=== PATIENT | female | born 1965 | race Caucasian/White ===

== ENCOUNTER 2020-05-01 08:03 | Outpatient (CLI) | payer OTHER, SELFPAY ==
--- NOTE | ~2020-05-01 | MM_ITS ---
EXAMINATION: MM screening [facility] w odilia HISTORY: Screening TECHNIQUE: Craniocaudal and mediolateral oblique 3-D tomosynthesis images were obtained and synthetic 2-D images were generated. CAD analysis was submitted and interpreted. COMPARISON: Comparison to multiple prior studies sequentially, with oldest reviewed study dated 04/09. BREAST PARENCHYMAL COMPOSITION: There are scattered areas of fibroglandular density. FINDINGS: There are focal asymmetries bilaterally in the left breast on cc views which were not defin itely seen on prior study. The right breast is stable without evidence for malignancy. IMPRESSION: 1. Focal left breast asymmetries laterally on CC view. 2. Additional mammographic views and possible breast ultrasound are recommended. BI-RADS Category 0: Incomplete: Needs additional imaging evaluation. Reviewed, dictated and finalized at location A. IMPRESSION: 1. Focal left breast asymmetries laterally on CC view. 2. Additional mammographic views and possible breast ultrasound are recommended . BI-RADS Category 0: Incomplete: Needs additional imaging evaluation.
== END 2020-05-01 08:04 | disposition home or self-care (01) ==
PROVIDERS: PCP Family Medicine; Visit Provider Obstetrics & Gynecology
DX: Z12.31 Encounter for screening mammogram for malignant neoplasm of breast (principal); R92.8 Other abnormal and inconclusive findings on diagnostic imaging of breast
CPT/HCPCS: 77063; 77067

== ENCOUNTER 2020-05-31 11:25 | Outpatient (CLI) | payer OTHER, SELFPAY ==
--- NOTE | ~2020-05-31 | MMUS_ITS ---
EXAMINATION: MM diagnostic mammo unilat LT, US breast LT limited HISTORY: New follow-up left breast asymmetry TECHNIQUE: Additional 3-D tomosynthesis images of the left breast were performed and synthetic 2-D im ages were generated. CAD analysis was submitted and interpreted. High resolution left breast ultrasou nd was performed. COMPARISON: 05/01/2020 BREAST PARENCHYMAL COMPOSITION: Breast composed of scattered areas of fibroglandular density. FINDINGS: MAMMOGRAPHIC FINDINGS: There are no suspicious masses, calcifications or architectural distortion in the left breast to sugg est malignancy. ULTRASOUND: Limited left breast ultrasound: Normal heterogeneous echotexture without focal solid or cystic mass. IMPRESSION: 1. No mammographic or sonographic evidence for malignancy in the left breast. 2. Routine yearly screening mammogram and regular clinical breast examination are recommended. BI-RADS Category 1: Negative Reviewed, dictated and finalized at location A. IMPRESSION: 1. No mammographic or sonographic evidence for malignancy in the left breast. 2. Routine yearly screening mammogram and regular clinical breast examination a re recommended. BI-RADS Category 1: Negative
== END 2020-05-31 11:26 | disposition home or self-care (01) ==
LOC: ANHIMG 11:28
PROVIDERS: PCP Family Medicine; Visit Provider Obstetrics & Gynecology
DX: R92.8 Other abnormal and inconclusive findings on diagnostic imaging of breast (principal)
CPT/HCPCS: 76642; 77065

== ENCOUNTER → 2021-01-04 08:02 | Outpatient (CLI) | payer OTHER, SELFPAY ==
--- NOTE | ~2021-01-04 | XR_ITS ---
XR shoulder RT min 2V DATE: 01/04/2021 08:23 INDICATION: Right shoulder pain TECHNIQUE: 4 views COMPARISON: None FINDINGS: There is diffuse osteopenia. Normal alignment at the acromioclavicular and glenohumeral joints. There is severe osteoarthritic change at the right glenohumeral joint with prominent humeral head spu rring. There is some irregularity and mild depression of the articular surface of the right humeral h ead. No fracture or dislocation or abnormal soft tissue calcification is evident. IMPRESSION: Severe osteoarthritis of the right glenohumeral joint Osteopenia Reviewed, dictated and finalized at location A.
== END ==
PROVIDERS: Visit Provider Physician Assistant
DX: M19.011 Primary osteoarthritis, right shoulder (principal); M85.811 Other specified disorders of bone density and structure, right shoulder
CPT/HCPCS: 73030

== ENCOUNTER 2021-05-15 08:41 | Outpatient (CLI) | payer OTHER, SELFPAY ==
--- NOTE | ~2021-05-15 | MM_ITS ---
EXAMINATION: MM screening [facility] BI w odilia HISTORY: Screening mammogram TECHNIQUE: Craniocaudal and mediolateral oblique 3-D tomosynthesis images were obtained and synthetic 2-D images were generated. CAD analysis was submitted and interpreted. COMPARISON: 05/31/2020, 05/01/2020, 04/28/2019, 04/25/2018 BREAST PARENCHYMAL COMPOSITION: There are scattered areas of fibroglandular density. FINDINGS: There is no evidence of suspicious mass, calcification, or architectural distortion to sugg est malignancy in either breast. There has been no suspicious interval change. IMPRESSION: 1. No mammographic evidence of malignancy. 2. Recommend routine screening mammography in one year. BI-RADS Category 1: Negative Reviewed, dictated and finalized at location A.
== END 2021-05-15 08:42 | disposition home or self-care (01) ==
LOC: ANHIMG 08:44
PROVIDERS: PCP Family Medicine; Visit Provider Obstetrics & Gynecology
DX: Z12.31 Encounter for screening mammogram for malignant neoplasm of breast (principal)
CPT/HCPCS: 77063; 77067

== ENCOUNTER 2022-08-07 14:42 | Outpatient (CLI) | payer OTHER, SELFPAY ==
--- NOTE | ~2022-08-07 | MM_ITS ---
EXAMINATION: MM screening [facility] BI w odilia HISTORY: Screening TECHNIQUE: Craniocaudal and mediolateral oblique 3-D tomosynthesis images were obtained and synthetic 2-D images were generated. CAD analysis was submitted and interpreted. COMPARISON: Comparison to multiple prior studies sequentially, with oldest reviewed study dated 11/2016. BREAST PARENCHYMAL COMPOSITION: There are scattered areas of fibroglandular density. FINDINGS: There is no evidence of suspicious mass, calcification, or architectural distortion to sugg est malignancy in either breast. There has been no suspicious interval change. IMPRESSION: 1. No mammographic evidence of malignancy. 2. Recommend routine screening mammography in one year. BI-RADS Category 1: Negative Reviewed, dictated and finalized at location A. 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
== END 2022-08-07 14:43 | disposition home or self-care (01) ==
LOC: ANHIMG 14:44
PROVIDERS: PCP Family Medicine; Visit Provider Obstetrics & Gynecology
DX: Z12.31 Encounter for screening mammogram for malignant neoplasm of breast (principal)
CPT/HCPCS: 77063; 77067

== ENCOUNTER 2023-09-30 08:16 | Outpatient (CLI) | payer OTHER, SELFPAY ==
--- NOTE | ~2023-09-30 | MM_ITS ---
EXAMINATION: MM screening [facility] BI w odilia HISTORY: Screening mammogram TECHNIQUE: Craniocaudal and mediolateral oblique 3-D tomosynthesis images were obtained and synthetic 2-D images were generated. CAD analysis was submitted and interpreted. COMPARISON: 08/07/2022, 05/15/2021, 05/31/2020, 05/01/2020 BREAST PARENCHYMAL COMPOSITION: There are scattered areas of fibroglandular density. FINDINGS: No suspicious mass, calcification, or architectural distortion are identified in either nina ast to suggest malignancy. There has been no suspicious interval change. IMPRESSION: 1. No mammographic evidence of malignancy. 2. Recommend routine screening mammography in one year. BI-RADS Category 1: Negative Reviewed, dictated and finalized at location A. 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
== END 2023-09-30 08:17 | disposition home or self-care (01) ==
PROVIDERS: PCP Family Medicine; Visit Provider Obstetrics & Gynecology
DX: Z12.31 Encounter for screening mammogram for malignant neoplasm of breast (principal)
CPT/HCPCS: 77063; 77067

== ENCOUNTER 2023-11-04 08:50 | Outpatient (CLI) | payer OTHER, SELFPAY ==
--- NOTE | 2023-11-04 08:52 | ECHO_ITS ---
Patient Info Name: Shania Hand Age: 58 years : 1965 Gender: Female Ht: 61 in Wt: 144 lbs BSA: 1.70 m2 HR: 71 bpm BP: 122 / 76 mmHg Technical Quality: Good Exam Date: 11/04/2023 9:02 AM Exam Location: Echo Lab Patient Status: Outpatient Admit Date: 11/04/2023 Staff Ordering Physician: Elif Grimaldo MD Bunch Breaker: Attending Provider: Elif Grimaldo MD Referring Physician: Dillan CASON; Exam Type: CA echo doppler color flow Study Info Indications R01.1 - Cardiac murmur, unspecified Complete two-dimensional, color flow and Doppler transthoracic echocardiogram is performed. Summary 1. Complete two-dimensional, color flow and Doppler transthoracic echocardiogram is performed. 2. Left ventricular chamber dimension is normal. 3. Left ventricular systolic function is normal, estimated at 60-65%. 4. The left ventricular diastolic function is grade I diastolic dysfunction. 5. E/e' 9 is minimally elevated. 6. Left atrial chamber dimension is mildly enlarged. 7. There is trace aortic valve regurgitation. 8. There is trace mitral valve regurgitation. 9. There is trace tricuspid valve regurgitation. 10. No pulmonary hypertension, estimated pulmonary arterial systolic pressure is 28 mmHg. Left Ventricle E/e' 9 is minimally elevated. Left ventricular chamber dimension is normal. Left ventricular systolic function is normal, estimated at 60-65%. The left ventricular diastolic function is grade I diastolic dysfunction. Right Ventricle Right ventricular systolic function is normal and with normal TAPSE 2.5 cm. Right ventricular chamber dimension is normal. Left Atria Left atrial chamber dimension is mildly enlarged. Right Atria Right atrial chamber dimension is normal. Aortic Valve The aortic valve is trileaflet. There is no aortic valve stenosis. There is trace aortic valve regurgitation. Pulmonic Valve There is no pulmonic regurgitation. Mitral Valve There is no mitral valve stenosis. There is trace mitral valve regurgitation. Tricuspid Valve There is trace tricuspid valve regurgitation. No pulmonary hypertension, estimated pulmonary arterial systolic pressure is 28 mmHg. Pericardium/Pleural There is no pericardial effusion. Inferior Vena Cava Normal inferior vena cava with >50% collapse upon inspiration consistent with normal right atrial pressure, 5 mmHg. Aorta The aortic root size at the sinus of Valsalva is normal. Left Ventricular Outflow Tract Name Value Normal LVOT 2D LVOT Diameter 2.0 cm LVOT Doppler LVOT Peak Gradient 5 mmHg LVOT Mean Gradient 3 mmHg LVOT VTI 28 cm LVOT VTI/AV VTI Ratio 0.7 LVOT Stroke Volume 86 ml LVOT CO 4.9 l/min LVOT CI 2.9 l/min/m2 Pulmonic Valve Name Value Normal PV Doppler
== END 2023-11-04 08:51 | disposition home or self-care (01) ==
PROVIDERS: PCP Family Medicine; Visit Provider Family Medicine
DX: R01.1 Cardiac murmur, unspecified (principal)
CPT/HCPCS: 93306

== ENCOUNTER 2024-07-10 13:24 | Outpatient (CLI) | payer OTHER, SELFPAY ==
--- NOTE | ~2024-07-10 | MR_ITS ---
MRI of the right shoulder Technique: Axial proton-density fat-sat images, coronal proton density fat-sat and T2 fat-sat images, and sagittal T1-weighted and T2 fat-sat images were acquired. Clinical History: Osteoarthritis Findings: There is ddzu-fs-edswqsfi AC joint degenerative change. No subacromial spur. Coracoclavicul ar, coracoacromial, and coracohumeral ligaments appear intact. There is moderate supraspinatus and infraspinatus tendinosis. No partial or full-thickness tear seen. Subscapularis tendon is intact. Tendon of long head of the biceps is intact. There is probable extensive degenerative attenuation of the labrum without definite discrete, detache d labral tear. There is severe glenohumeral joint osteoarthritis. There is diffuse high-grade chondromalacia with mo derate to large inferomedial humeral head osteophyte. There is mild remodeling of the shape of the me dial aspect of the humeral head. There is subchondral cystic change in the glenoid posteriorly. Inferior glenohumeral ligament is intact. There is small to moderate glenohumeral joint effusion. The re is no significant fluid distention of the subacromial/subdeltoid bursa. No muscle atrophy or edema . Impression: Severe glenohumeral joint osteoarthritis, as detailed above. Rotator cuff tendinosis, as above, without partial or full-thickness tear. Extensive degenerative attenuation of the labrum without definite, detached labral tear. Reviewed, dictated and finalized at [facility]. Impression: Severe glenohumeral joint osteoarthritis, as detailed above. Rotator cuff tendinosis, as above, without partial or full-thickness tear. Extensive degenerative attenuation of the labrum without definite, detached lab ral tear.
== END 2024-07-10 13:25 | disposition home or self-care (01) ==
PROVIDERS: PCP Family Medicine; Visit Provider Orthopaedic Surgery
DX: M19.011 Primary osteoarthritis, right shoulder (principal)
CPT/HCPCS: 73221

== ENCOUNTER 2024-09-08 07:47 | Outpatient (CLI) | payer OTHER, SELFPAY ==
--- NOTE | 2024-09-08 08:43 | ECG_ITS ---
Test Date: 2024-09-08 08:50:45 Measurements Intervals [place] Rate: 57 P: 52 OR: 145 QRS: 28 QRSD: 92 T: 73 QT: 379 QTc: 371 Interpretive Statements SINUS BRADYCARDIA No previous ECG available for comparison Electronically Signed On 09-08-2024 12:22:01 GROCERY STORE CLERK by Shelbi Machuca M.D.
[2024-09-08 10:40] LABS: MRSA (PCR) NOT DETECTED (NOT DETECTE)
== END 2024-09-08 07:48 | disposition home or self-care (01) ==
LOC: ANHSURGERY 07:51
PROVIDERS: PCP Family Medicine; Visit Provider Orthopaedic Surgery
DX: M19.011 Primary osteoarthritis, right shoulder (principal); Z01.818 Encounter for other preprocedural examination; R00.1 Bradycardia, unspecified
CPT/HCPCS: 87641; 93005

== ENCOUNTER 2024-10-03 01:24 | Day surgery (SDC) | payer OTHER, SELFPAY ==
[2024-09-08 07:44] VITALS: BP 124/69; PULSE 67; RESP 16; TEMP 36.7; O2SAT 97
[2024-09-08 07:59] VITALS: BMI 26.4
--- NOTE | 2024-09-08 08:14 | PC.NURSE ---
Addendum entered by Jena Montoya RN 09/08/24 08:38: PATIENT INSTRUCTED TO USE ALBUTEROL INHALER NEEDED MORNING OF SURGERY. SHE RELAYS UNDERSTANDING. Original Note: Report to the Outpatient Waiting Room, entrance under the green pavilion located off [facility], at time ___6:00AM____ on date ____10/03/24___. Planned Procedure Time: ____7:30AM____.? Time changes happen often and if your time is changed the preop area will call you the afternoon before. - You and your visitor will be asked to self-screen and do not enter if you have any COVID symptoms. Please call surgeon if you need to reschedule. - A mask is optional within the hospital at this time. Patients may have clear liquids (water, carbonated beverages, clear teas, apple juice) until 3 hours prior to surgery with a maximum of 20 ounces. - No food from midnight until time of surgery and no smoking. This includes no chewing gum, candy or mints. Take only the following medications with a SIP of water on the morning of surgery: NONE DO NOT STOP ANY OF YOUR OTHER PRESCRIPTION MEDICATIONS PRIOR TO SURGERY EXCEPT THE FOLLOWING Medications to discontinue per physician ____HOLD ALL NSAIDS 7 DAYS PRE-OP PER DR PANIAGUA- LAST DOSE 09/25/23 HOLD ALL VITAMINS/SUPPLEMENTS 3 DAYS PRE-OP PER ANESTHESIA- LAST DOSE 09/29/23 Please no make-up, nail mexican, hairspray, perfume, deodorant, or body powder the day of surgery.? No jewelry (including any body piercings) or valuables the day of surgery, leave them at home.? Please take a shower or bath the night before, or the morning of, surgery with an antibacterial soap.? Wear comfortable, loose fitting clothing.? Children are encouraged to wear pajamas. - Jewelry must be removed prior to entering the operating room.? Rings and piercings that are not removed may be cut off. - The hospital will not accept responsibility for valuables.? - Please leave all valuables, including medications, at home the day of surgery. If you are going home after surgery, a licensed cdl flatbed truck driver must drive you home.? - NO public transportation without another adult if you receive anesthesia. - We recommend that an adult stay with you for 24 hours following discharge. - We also recommend that you do not drive, make important decision, drink alcoholic beverages, or take any drugs that were not prescribed by your health care provider for at least 24 hours after your discharge time. Follow any additional instructions given to you from your surgeon. Telephone instructions given to ___PATIENT AND HUSBAND and asked if any additional questions and then verbalized understanding. Patient advised to call surgeon office or pre surgery nurse liaison [phone] if any additional questions.
[2024-10-03] VITALS (14 sets, daily range): BP systolic 102–140; BP diastolic 59–83; PULSE 59–119; RESP 14–20; TEMP 36.3–36.8; O2SAT 96–100
--- NOTE | ~2024-10-03 | XR_ITS ---
EXAMINATION: XR shoulder RT min 2V DATE: 10/03/2024 12:08 INDICATION: Postoperative evaluation following anatomic) total shoulder arthroplasty. TECHNIQUE: AP and lateral views of the right shoulder were obtained. COMPARISON: None FINDINGS: Right total shoulder arthroplasty which appears well seated in near-anatomic alignment. No fracture. Expected small amount of postoperative gas in the surrounding soft tissues. Mild right acromioclavicu lar osteoarthritis. Visualized portions of the lungs are clear. IMPRESSION: Right total shoulder arthroplasty, negative for postoperative purposes. Reviewed, dictated and finalized at location B. RA PERSON
[2024-10-03] MEDS: ACETAMINOPHEN 500 MG TABLET 1000 MG PO (07:15)
[2024-10-03] MEDS: TRANEXAMIC ACID 1,000MG/ISO100 1,000 MG/100 ML BAG 200 MG IVPB (07:15)
[2024-10-03] MEDS: LACTATED RINGERS 1,000 ML 30 ML IV CONT ×2 (07:15→11:48)
--- NOTE | 2024-10-03 07:21 | P.PNAN_ITS ---
Anes - Initial Pre Proc Eval Procedure: Operation Date: 10/03/24 08:30 Proposed Procedures p Right Anatomic Total Shoulder Arthroplasty - Destin Zhang MD Date/Time: 10/03/24 07:21 Surgeon: Destin Zhang MD Pre Op Diagnosis: primary oa right shoulder Patient Data Age: 59 Gender: F Height: 1.55 m Weight: 63.6 kg Last Vital Signs Temp 98.1 F 09/08/24 07:44 Pulse 67 09/08/24 07:44 Resp 16 09/08/24 07:44 BP 124/69 09/08/24 07:44 Pulse Ox 97 09/08/24 07:44 O2 Del Method Room Air 09/08/24 07:44 Allergies Allergy/AdvReac Type Severity Reaction Status Date / Time No Known Allergies Allergy Verified 09/08/24 07:55 Home Medications ?Medication ?Instructions ?Recorded ?Confirmed ?Type calcium 600 mg capsule 1,200 mg PO DAILY 08/09/20 09/08/24 History blzbjfoz-ujyihzh-nspu-iron 18 1 tablet PO DAILY 01/30/21 09/08/24 History mg-FA 400 mcg-vit K 25 mcg tablet (One-A-Day Women's Complete(with vit K)) cholecalciferol (vitamin D3) 25 25 mcg PO DAILY 07/09/22 09/08/24 History mcg (1,000 unit) capsule estradiol 10 mcg vaginal tablet 10 mcg vaginal 2XW 08/26/22 09/08/24 History famotidine 40 mg tablet 40 mg PO QHS #90 tabs 01/26/24 09/08/24 Rx montelukast 10 mg tablet See Rx Instructions .Route 09/05/24 09/08/24 Rx .COMPLEX #90 tabs ibuprofen 200 mg tablet (Advil) 400 mg PO ONCE PRN pain 09/08/24 09/08/24 History levalbuterol tartrate 45 2 inh inhalation Q6H PRN shortness 09/08/24 09/08/24 History mcg/actuation aerosol inhaler of breath or wheezing naproxen sodium 220 mg capsule 440 mg PO Q8-12H PRN pain 09/08/24 09/08/24 History (Aleve) Laboratory Tests 10/03/24 06:54 Blood Type Pending Antibody Screen Pending Patient hx anesthesia problems: none Family hx anesthesia problems: none Results Review: All pre-operative results and documents have been reviewed as part of the pre- operative evaluation. [facility] Past Medical History Medical History Primary osteoarthritis, right shoulder Chronic depression not affecting current episode of care Right groin mass History of asthma Right inguinal hernia Menopausal and female climacteric states Osteopenia after menopause Spinal stenosis, lumbar region, without neurogenic claudication Surgical History Surgical History History of back surgery History of hysterectomy H/O removal of cyst Family History Family History Father Diabetes mellitus Mother Diabetes mellitus Sibling Diabetes mellitus Grandparent Family history of malignant neoplasm of breast Other Carcinoma of colon Cerebrovascular accident Family history of allergic disorder Family history of cardiovascular disease Family history of glaucoma Hypertension Social History Social History Smoking packs per day: 0.5 Smoking cigarettes per day: 10.0 Years smoked: 20 Smoking pack-years: 10.00 Smoking status: Former smoker Tobacco type: cigarettes Second hand tobacco smoke exposure: Yes Smoking end date: 09/20/01 Alcohol intake: never Substance use: never Substance use type: does not use Do You Feel Safe in your Home?: Yes Lack of Transportation: No Lack of Food: Never True Current Housing: I Have Housing Concerned About Future Housing: No Difficulty Paying Gas/Electric Bills: No Difficulty Paying for Meds: No Currently Unemployed: No Education: High School Diploma/GED Difficulty w/ Childcare or Family Care: No Living arrangements: with family Additional living arrangements comments: [facility] Occupation/Education: occupation Additional occupation/education comments: [employer] Gender identity (if verbalized by the patient): Female Spiritual care concerns: No ([employer]) Anes - Eval Final PreProcedure Day of Procedure 10/03/24 07:21 Patient weight: overweight Heart: regular rate and rhythm Lungs: clear to auscultation Airway: Mallampati scale class II and special considerations (Overbite noted. ) Neurological: alert and oriented Last oral intake: >/= 8 hours ASA classification: II Emergent: no Anesthetic plan: proceed Anesthesia type and monitoring: general ETT and standard monitoring Results Review: All pre-operative results and documents have been reviewed as part of the pre- operative evaluation. Pt very active w cardio/wts most days/week, no cp or sob. Pt longtime exsmoker. Informed Consent: The patient's anesthetic plan and its attendant risks and benefits were discussed with the patient/family/POA. Questions were solicited and answers provided to the satisfaction of the patient/family/POA.
--- NOTE | 2024-10-03 08:38 | WPDHPUPDATE1 ---
History and Physical Update Update Date/Time: 10/03/24 08:38 History and Physical has been reviewed, including an updated exam of the patient. There are NO changes in the patient's condition. Risks, benefits, and alternatives have been discussed and questions answered. Patient agrees to proceed with procedure.
--- NOTE | 2024-10-03 08:53 | WPDANESPNB ---
Anes - Peripheral Nerve Block Date/Time: 10/03/24 08:53 I have discussed with the patient/family/POA the placement of a peripheral nerve block for post-operative pain management, including associated risks, benefits, complications, and side effects. Alternative methods of post-operative analgesia were detailed. Questions were solicited and answers provided to the satisfaction of the patient/family/POA. Time-Out: A pre-procedural Time-Out was completed immediately before starting the procedure and confirmed: Patient Identification, Site, Procedure, Patient Position and the Availability of Requisite Equipment. Clinical Indications: Acute post-operative pain management requested by the operative surgeon. Nerve Block Insertion Note Anes-nerve block: interscalene right Patient position: supine Skin prep: chlorhexidine Needle: 22 gauge, stimulating, insulated echogenic needle. Needle length: 80 mm Technique: ultrasound Injectate: other (Bupiv 0.5%, 12 mls. ) Observations: tolerated well Complications: none Procedure start time:: 840 Procedure end time:: 848
[2024-10-03] MEDS: ceFAZolin 2 GM/D5W 50 ML 2 GM/50 ML BAG IVPB ×2 (09:34→17:04)
[2024-10-03] MEDS: SODIUM CHLORIDE 0.9% IV 37.7 ML, MORPHINE SULFATE INJ (*CRX) 2 MG, ROPivacaine HCL 1% 2... INFILTRATE (09:34)
[2024-10-03] MEDS: VANCOMYCIN HCL 1,000 MG VIAL 1000 MG TOPICAL (09:39)
--- NOTE | 2024-10-03 11:18 | P.OP_ITS ---
Procedure Note - Detailed Date of Procedure 10/03/24 Pre-op Diagnosis Primary osteoarthritis right shoulder. Post-op Diagnosis Same Procedure Performed Anatomic total shoulder arthroplasty, right. Surgeon Destin Zhang MD It Risk And Assurance Senior Manager Heather Bower PA-C Anesthesia [facility] (Interscalene block.) Findings No significant contracture. The deltopectoral interval was poorly demarcated. There was no cephalic vein. Identification of the interval was accomplished very superiorly. Minimal glenoid wear centrally. Bone quality was good. The inset glenoid fit best with the small size. It was placed slightly superior for optimal humeral contact. Slight inferior tilt to match the superior orientation of the glenoid. 2.5-3 mm pocket created circumferentially. Lesser tuberosity osteotomy repaired with 4 #5 Ethibond through bone tunnels. The inferior suture repaired the soft tissue inferior aspect of the capsule and subscapularis. The 2nd from the top suture was incorporated around the neck of the prosthesis for additional reinforcement of the repair. The 44 mm diameter humeral head covered very nicely from superior to inferior. It was just line to line anterior to posterior. However the stability was very nice and there was mild laxity consistent with the patient's preoperative laxity. The next smaller size head was unstable. Description of Procedure Preoperative antibiotics were given. An interscalene block placed in the holding area. The patient was brought to the operating room and a general anesthetic was administered. He was carefully placed in the chair position. Head and neck, and bony prominences were carefully padded and positioned. The shoulder was prepped and draped in the usual sterile fashion. A longitudinal incision was created over the deltopectoral interval. The cephalic vein was absent. The biceps was released and later tenodesed to the pectoralis tendon.The upper border of the pectoralis tendon was not released. A lesser tuberosity osteotomy was created with osteotomes. It was tagged for later repair. The inferior capsule was exposed and the humeral head was delivered into the wound. An anatomic head cut was taken utilizing the x-ray internal alignment jig. The cut protector was placed and attention was turned to the glenoid. The coraco humeral ligament was released. The anterior capsule was released. The glenoid labrum was excised along with the biceps. The capsule was released inferiorly including the triceps attachment. Posterior capsular release was not performed. Anatomic landmarks on the glenoid were identified and the drill guide was placed slightly superior to match the anticipated humeral articulating area. The guide pin was placed followed by the one-step reaming to approximately 2-3 mm depth. The superior and inferior drill was used for the pegs. The bone was irrigated and prepared. The real component was cemented into position. Excess cement was carefully removed. Attention was turned back to the humerus. The op ening Reamer was placed followed by the 0 broach. The lesser tuberosity osteotomy was rolled 3 times and a Arganteal suture Passer was used to pass a 2. Ethibond suture shuttle. The real implant was inserted with excellent Press- Fit. The 5. Ethibond modified Felipe-Jesus sutures from the lesser tuberosity osteotomy were shuttled laterally. The osteotomy was read return to its anatomic position and secured. Supplemental #2 Vicryl were used and 1 suture was placed in the rotator interval. The wound was irrigated. 1 g of vancomycin power was introduced into the wound. The deltopectoral interval was reapproximated with 2-0 Vicryl suture and the remaining skin 2-0 and 3-0 Stratafix suture. Steri-Strips were placed on the skin with a Mepilex bandage. Sling was applied and the patient extubated. An additional pain relieving cocktail was placed in the periarticular tissues during the procedure. Implants Shoulder innovations stemless humeral implant size 1. 44x 17 mm (R24) humeral head. 20x 6 mm diameter circular in line peg inset glenoid component. One batch of quick set antibiotic cement. Estimated Blood Loss 200 Drains No Packing No Pathology None sent Complications No immediate complications Condition Stable Disposition PACU [facility] Billing Surgery - Charge Forward: Surgery Billing
--- NOTE | 2024-10-03 13:30 | PC.NURSE ---
This patient, Shania Hand, was admitted to [facility] Surg Room 324-02. Patient/family oriented to hospital policies and general routines including ID bracelet, bed and alarms, visiting hours, pain management, procedures, bathroom and other care routines, personal items, smoking policy, room service/diet, and visiting hours. Information on how to activate the Rapid Response Team has been discussed. Patient/Family are encouraged to report perceived risks to care and to ask questions if they do not understand what they are told or what they should do.
[2024-10-03] MEDS: ASPIRIN 81 MG ENTERIC TABLET PO ×2 (15:41→21:35)
[2024-10-03] MEDS: ACETAMINOPHEN 325 MG TABLET 650 MG PO (17:15)
[2024-10-03] MEDS: FAMOTIDINE 20 MG TABLET 40 MG PO (21:35)
[2024-10-03] MEDS: oxyCODONE/ACETAMINOPHEN (*CRX) 5-325 MG TABLET 1 TABLET PO (22:22)
[2024-10-04] MEDS: ACETAMINOPHEN 325 MG TABLET 650 MG PO ×2 (00:05→05:17)
[2024-10-04] MEDS: ceFAZolin 2 GM/D5W 50 ML 2 GM/50 ML BAG IVPB ×2 (00:05→08:15)
[2024-10-04 03:02] VITALS: BP 116/68; PULSE 60; RESP 16; TEMP 36.4; O2SAT 98
[2024-10-04] MEDS: oxyCODONE/ACETAMINOPHEN (*CRX) 10-325 MG TABLET 1 TAB PO ×2 (03:24→08:13)
[2024-10-04] MEDS: CYCLOBENZAPRINE HCL 10 MG TABLET PO (05:26)
[2024-10-04 07:02] VITALS: BP 110/58; PULSE 66; RESP 18; O2SAT 98
[2024-10-04 07:13] LABS: Basophils Percent Auto 0.7 % (0.2-1.2); Eosinophils Absolute Auto 0.1 K/mm3 (0-0.3); Eosinophils Percent Auto 1.9 % (0-4.4); Hematocrit 32.7 % (37.0-47.0); Hemoglobin 10.4 g/dL (12.0-15.0); Immature Granulocyte Absolute 0.01 K/mm3 (0.00-0.031); Immature Granulocyte Percent A 0.2 % (0-0.5); Lymphocytes Absolute Auto 1.88 K/mm3 (0.9-3.2); Lymphocytes Percent Auto 31.7 % (18.3-44.2); Mean Corpuscular HGB Conc 31.8 g/dl (32-36); Mean Corpuscular Hemoglobin 29.5 pg (26-34); Mean Corpuscular Volume 92.9 fl (80-100); Mean Platelet Volume 10.4 fl (7.4-10.4); Monocytes Absolute Auto 0.5 K/mm3 (0.1-0.6); Monocytes Percent Auto 8.9 % (2.6-8.5); Neutrophils Absolute Auto 3.4 K/mm3 (1.3-6.7); Neutrophils Percent Auto 56.6 % (45.5-73.1); Platelet Count Result 206 k/mm3 (150-375); Red Blood Count 3.52 M/mm3 (4.2-5.4); Red Cell Distribution Width 12.9 % (11.5-14.5); White Blood Count 5.9 K/mm3 (4.5-10.0)
[2024-10-04 07:25] LABS: Anion Gap 3 mmol/L (4-12); Blood Urea Nitrogen 15 mg/dL (7-17); Calcium 8.1 mg/dL (8.4-10.2); Carbon Dioxide 28 mmol/L (22-30); Chloride 106 mmol/L (98-107); Estimated CRCL calculation 59 ml/min; Estimated Glomerular Filt Rate > 60; Glucose 98 mg/dL (65-110); Potassium 3.5 mmol/L (3.4-5.0); Sodium 137 mmol/L (137-145)
--- NOTE | 2024-10-04 07:49 | P.DS_ITS ---
DS: Admitting Diagnosis Discharge Date 10/04/24 Admitting Diagnosis Shoulder arthritis. DS: Discharge Diagnosis Discharge Diagnosis (1) Status post total replacement of right shoulder: Code(s): Z96.611 - Presence of right artificial shoulder joint Status: Acute Assessment and Plan: Postop day 1: Right anatomic total shoulder arthroplasty. Patient tolerated procedure well. No complications. Pain manageable with pain medication. No numbness or tingling. We had a lengthy discussion regarding postoperative wound care, limitations, expectations, and exercises. Patient shows good understanding. She has had initial physical therapy and is tolerating it well. DVT prophylaxis: 81 mg baby aspirin b.i.d. for 14 days. Pain medication: Percocet. Patient has followup appointment with Dr. Zhang in 3 weeks. DS: Summary Hospital Course Hospital Course: Right anatomic total shoulder arthroplasty. No complications. Patient has had initial physical therapy and occupational therapy. Status at Discharge Functional status at discharge: independent ambulation Overall status at discharge: patient is progressing back to baseline Time Spent with Patient Time attestation: Total time spent providing and/or coordinating discharge services: Exam Narrative: Normal weight 59 y/o Female. Alert and oriented x3. No acute distress. Resting comfortably in chair. Wearing sling. Dressing dry and intact with no drainage. Moderate swelling. Moderate ecchymosis. No erythema. Range of motion limited due to pain. Good finger, wrist, elbow range of motion. Neurologic status intact. Light touch sensation intact. Normal capillary refill. No varicosities. Distal pulses palpable. Fires deltoid. Block wearing off. DS: Data Data Completed and Pending Labs on day of discharge: Labs from last 24 hours 10/04/24 10/03/24 06:44 06:54 WBC 5.9 RBC 3.52 L Hgb 10.4 L Hct 32.7 L MCV 92.9 MCH 29.5 MCHC 31.8 L RDW 12.9 Plt Count 206 MPV 10.4 Immature Gran % (Auto) 0.2 Neut % (Auto) 56.6 Lymph % (Auto) 31.7 [place] % (Auto) 8.9 H Eos % (Auto) 1.9 Baso % (Auto) 0.7 Lymph # (Auto) 1.88 [place] # (Auto) 0.5 Eos # (Auto) 0.1 Baso # (Auto) 0.0 Abs Immat Gran (auto) 0.01 Absolute Neuts (auto) 3.4 Absolute Nucleated RBC 0.000 Nucleated RBC % 0.0 Sodium 137 Potassium 3.5 Chloride 106 Carbon Dioxide 28 Anion Gap 3 L BUN 15 Creatinine 0.73 Estim Creat Clear Calc 59 Estimated GFR > 60 Glucose 98 Calcium 8.1 L Blood Type O Positive Antibody Screen Negative Discharge Plan Discharge Patient Disposition: Home, Self-Care Discharge Instructions: See green instruction sheets Patient Language: Yemeni Stand Alone Forms: General Discharge Instructions Follow-up/Referrals: Heather Bower PA [Physician Supervisor [employer]] - Discharge Medications: New aspirin 81 mg tablet,delayed release (DR/EC) 81 mg PO BID 14 Days Qty: 28 0RF oxycodone-acetaminophen 5-325 mg tablet 1 - 2 tablet PO Q4-6H PRN (Reason: pain) 7 Days Qty: 30 0RF Continued calcium 600 mg Capsule 1,200 mg PO DAILY One-A-Day Women's Complete(vK) 18 mg-400 mcg- 25 mcg tablet 1 tablet PO DAILY cholecalciferol (vitamin D3) 25 mcg (1,000 unit) capsule 25 mcg PO DAILY estradiol 10 mcg tablet 10 mcg vaginal 2XW levalbuterol tartrate 45 mcg/actuation HFA aerosol inhaler 2 inh inhalation Q6H PRN (Reason: shortness of breath or wheezing) naproxen sodium [Aleve] 220 mg capsule 440 mg PO Q8-12H PRN (Reason: pain) ibuprofen [Advil] 200 mg tablet 400 mg PO ONCE PRN (Reason: pain) famotidine 40 mg tablet 40 mg PO QHS Qty: 90 1RF montelukast 10 mg tablet See Rx Instructions .ROUTE .COMPLEX Qty: 90 1RF Dose Instruction: TAKE 1 TABLET BY MOUTH DAILY Rx Instructions: TAKE 1 TABLET BY MOUTH DAILY
[2024-10-04] MEDS: ASPIRIN 81 MG ENTERIC TABLET PO (08:13)
[2024-10-04] MEDS: CHOLECALCIFEROL 1,000 UNITS TABLET 1000 UNITS PO (08:13)
[2024-10-04] MEDS: MULTIVITAMIN HEMATINIC (*BKC) TABLET 1 TABLET PO (08:13)
[2024-10-04] MEDS: MONTELUKAST SODIUM 10 MG TABLET BY MOUTH (08:13)
[2024-10-04] MEDS: SENNA/DOCUSATE SODIUM TABLET 2 TAB PO (08:14)
[2024-10-04] MEDS: polyethylene glycoL 3350 17 GM POWD.PACK PO (08:14)
[2024-10-04] MEDS: CALCIUM CARBONATE (OSCAL) 500 MG TABLET 1000 MG PO (08:14)
--- NOTE | 2024-10-04 10:40 | P.PNAN_ITS ---
Anes - Prog Note Post-Op Date/Time: 10/04/24 10:40 Cardiovascular status: normal Respiratory status: normal Airway patency: baseline Mental status: baseline Post-Op hydration status: normal Vital Signs: Last Vital Signs Temp 97.5 F L 10/04/24 03:02 Pulse 66 10/04/24 07:02 Resp 18 10/04/24 07:02 BP 110/58 L 10/04/24 07:02 Pulse Ox 98 10/04/24 07:02 O2 Del Method Room Air 10/03/24 20:00 O2 Flow Rate 8 10/03/24 12:15 Pain Score (VAS): 0/10 I/O: Intake & Output 10/03/24 10/04/24 10/04/24 23:59 07:59 15:59 Intake Total 990 50 240 Output Total 0 Balance 990 50 240 Laboratory Tests 10/04/24 06:44 10/04/24 06:44 10/04/24 06:44 WBC 5.9 RBC 3.52 L Hgb 10.4 L Hct 32.7 L MCV 92.9 MCH 29.5 MCHC 31.8 L RDW 12.9 Plt Count 206 MPV 10.4 Immature Gran % (Auto) 0.2 Neut % (Auto) 56.6 Lymph % (Auto) 31.7 [place] % (Auto) 8.9 H Eos % (Auto) 1.9 Baso % (Auto) 0.7 Lymph # (Auto) 1.88 [place] # (Auto) 0.5 Eos # (Auto) 0.1 Baso # (Auto) 0.0 Abs Immat Gran (auto) 0.01 Absolute Neuts (auto) 3.4 Absolute Nucleated RBC 0.000 Nucleated RBC % 0.0 Sodium 137 Potassium 3.5 Chloride 106 Carbon Dioxide 28 Anion Gap 3 L BUN 15 Creatinine 0.73 Estim Creat Clear Calc 59 Estimated GFR > 60 Glucose 98 Calcium 8.1 L Post-procedural complaints: none Patient Feedback: Patient satisfied with anesthetic care.
== END 2024-10-04 11:40 | disposition home or self-care (01) ==
LOC: ANHSURGERY 08:12 → ANH3MEDSUR 13:21
PROVIDERS: Physician Assistant Surgical; PCP Family Medicine; Visit Provider Orthopaedic Surgery
PROC: (CPT 23472; principal; 2024-10-03 08:30)
DX: M19.011 Primary osteoarthritis, right shoulder (principal); G89.18 Other acute postprocedural pain; Z87.891 Personal history of nicotine dependence
CPT/HCPCS: 23472; 64415; 36415; 73030; 80048; 85025; 86850; 86900; 86901; 97110; 97161; 97165; 97530; 97535; A4565; A9270; C1713; C1776; J0171; J0330; J0690; J1100; J1885; J2003; J2250; J2270; J2371; J2405; J2704; J2795; J3010; J3370; J7120

== ENCOUNTER 2024-10-25 09:32 | Outpatient (CLI) | payer OTHER, SELFPAY ==
--- NOTE | ~2024-10-25 | XR_ITS ---
EXAMINATION: XR shoulder RT min 2V DATE: 10/25/2024 09:56 INDICATION: Follow-up recent right shoulder arthroplasty TECHNIQUE: AP internally and externally rotated, AP oblique externally rotated and transscapular Y vi ews of the right shoulder were obtained. COMPARISON: None FINDINGS: Again seen is a right total shoulder arthroplasty which appears well seated in near-anatomic alignmen t. No fracture. No periprosthetic lucency to suggest loosening or infection. Mild acromioclavicular o steoarthritis. Visualized portions of the lungs are clear. Soft tissues are unremarkable. IMPRESSION: Mild right jefferson clavicular osteoarthritis in expected appearance of a right total shoulder arthropl asty. Reviewed, dictated and finalized at location A. GROWER IMPRESSION: Mild right jefferson clavicular osteoarthritis in expected appearance of a right t otal shoulder arthroplasty.
--- OUTSIDE RECORDS SUMMARY | 2024-10-25 10:12 | XMS_ITS | Referral Summary ---
Author Organization [place] [address] [place] Address [address] [place] [id number] Care Team Providers Care Blood Bank Technician Name Role Phone Unknown, Notinfile Primary Care Provider Unavail able Allergies No known active allergies Medications albuterol HFA (PROVENTIL HFA,VENTOLIN HFA,PROAIR HFA) 90 mcg/actuation inhaler INHALE 1 PUFF BY MOUTH EVERY 4 HOURS NEEDED FOR SHORTNESS OF BREATH OR WHEEZING [address] (VOLTAREN) 75 mg EC tablet Take 1 tablet (75 mg total) by mouth 0 Active escitalopram (LEXAPRO) 20 mg tablet Take 1 tablet (20 mg total) by mouth daily Active Vagifem 10 mcg tablet 4 Active famotidine (PEPCID) 40 mg tablet Take 1 tablet (40 mg total) by mouth nightly at bedtime 4 Active methocarbamoL (ROBAXIN) 750 mg tablet Take 1 tablet (750 mg total) by mouth every 6 (six) hours 0 Active montelukast (SINGULAIR) 10 mg tablet 4 Active Active Problems Problem Noted Date Diagnosed Date Asthma 05/08/2015 Leukopenia 03/12/2015 Social History Tobacco Use Types Packs/Day Years Used Date Smoking Tobacco: Never Assessed Comments Unknown Sex and Gender Information Value Date Recorded Sex Assigned at Not on file 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 Gender Identity Not on file Sexual Orientation Not on file Last Filed Vital Signs Vital Sign Reading Time Taken Comments Blood Pressure 132/76 03/03/2024 4:26 PM CDT Pulse 65 03/03/2024 4:26 PM CDT Temperature 36.4 ??C (97.6 ??F) 03/03/2024 4:26 PM CD T Respiratory Rate 18 03/03/2024 4:26 PM CDT Oxygen Saturation 99% 03/03/2024 4:26 PM CDT Inhaled Oxygen Concentration - - Weight 65.8 kg (145 lb) 03/03/2024 4:26 PM CDT Height 157.5 cm (5' 2 ) 03/03/2024 4:26 PM CDT Body Mass Index 26.52 03/03/2024 4:26 PM CDT Plan of Treatment Not on file Insurance [facility] [employer] Care Teams Blood Bank Technician Relationship Specialty Start Date End Date Unknown, Notinfile PCP - General 03/03/24
--- OUTSIDE RECORDS SUMMARY | 2024-10-25 10:12 | XMS_ITS | Clinical Summary ---
Author Organization [place] [address] [place] Address [address] [place] [phone] Care Team Providers Care Business Systems Lead Name Role Phone Unknown, Notinfile Primary Care [...] on file Legal Sex Female 11:56 AM BRICK MASON Gender Identity Not on file Sexual Orientation Not on file Obstetrics History Last Filed Vital Signs Vital Sign Reading [...] 03/03/2024 4:26 PM CDT Plan of Treatment Health Maintenance Due Date Last Done Comments Breast Cancer Screening-Mammogram 1965 Cervical Cancer Screening 1965 Colon Cancer Screening-Colonoscopy 1965 Depression Screening 1963 Hepatitis C Screening 1963 Hepatitis B Screening 1981 Regular Well Visit/Exam 18-64 1981 Zoster Vaccine (2 of 3) 03/08/2017 01/12/20 17, 04/27/2016, 01/13/2016, Additional history exists Covid-19 Vaccine (4 - 2023-2 5 season) 2024 08/21/2021, 10/28/2020, 10/07/2020 Influenza Vaccine (#1) 2024 , 08/26/2022, 07/17/2021, Additional history exists DTaP/Tdap/Td Vaccine (2 - Td or Tdap) 04/20/2029 04/20/2019 Pneumococcal vaccine <65 Completed 08/26/2023 Insurance [facility] [employer] Care Teams Business Systems Lead Relationship Specialty Start Date End Date Unknown, Notinfile PCP - General 03/03/24
== END 2024-10-25 09:33 | disposition home or self-care (01) ==
PROVIDERS: PCP Family Medicine; Visit Provider Orthopaedic Surgery
DX: Z96.611 Presence of right artificial shoulder joint (principal); M19.011 Primary osteoarthritis, right shoulder
CPT/HCPCS: 73030

== ENCOUNTER 2024-11-22 09:31 | Outpatient (CLI) | payer OTHER, SELFPAY ==
--- NOTE | ~2024-11-22 | XR_ITS ---
XR shoulder RT min 2V Ordering provider: Destin Zhang MD History: . Z47.1 - Aftercare following joint replacement surgery . Comparison: October 25, 2024 FINDINGS: BONES: No acute fracture or dislocation. JOINT SPACES: Right shoulder arthroplasty. Mild osteoarthritic changes of the acromioclavicular joint . SOFT TISSUES: Normal. IMPRESSION: Right shoulder arthroplasty unchanged. Reviewed, dictated and finalized at location A. ION FUND MANAGER
--- OUTSIDE RECORDS SUMMARY | 2024-11-22 10:17 | XMS_ITS | Referral Summary ---
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 Gender Identity Not on file Sexual Orientation Not on file Last Filed Vital Signs Vital Sign Reading Time Taken Comments Blood Pressure 132/76 03/03/2024 4:26 PM CDT Pulse 65 03/03/2024 4:26 PM CDT Temperature 36.4 C (97.6 F) 03/03/2024 4:26 PM CDT Respiratory Rate 18 03/03/2024 4:26 PM CDT Oxygen Saturation 99% 03/03/2024 4:26 PM CDT Inhaled Oxygen Concentration - - Weight 65.8 kg (145 lb) 03/03/2024 4:26 PM CDT Height 157.5 cm (5' 2 ) 03/03/2024 4:26 PM CDT Body Mass Index 26.52 03/03/2024 4:26 PM CDT Plan of Treatment Not on file Insurance [facility] [employer] Care Teams Quality Control Expert Relationship Specialty Start Date End Date Unknown, Notinfile PCP - General 03/03/24
--- OUTSIDE RECORDS SUMMARY | 2024-11-22 10:17 | XMS_ITS | Clinical Summary ---
Author Organization [place] [address] [place] Address [address] [place] [phone] Care Team Providers Care Microbiology Coordinator Name Role Phone Unknown, Notinfile Primary Care [...] on file Legal Sex Female 11:56 AM RN CARDIOLOGY Gender Identity Not on file Sexual Orientation [...] 04/20/2019 Pneumococcal vaccine <65 Completed 08/26/2023 Insurance [facility] [employer] Care Teams Microbiology Coordinator Relationship Specialty Start Date End Date Unknown, Notinfile PCP - General 03/03/24
== END 2024-11-22 09:32 | disposition home or self-care (01) ==
PROVIDERS: PCP Family Medicine; Visit Provider Orthopaedic Surgery
DX: Z47.1 Aftercare following joint replacement surgery (principal)
CPT/HCPCS: 73030

== ENCOUNTER 2024-11-27 01:23 | Day surgery (SDC) | payer OTHER, SELFPAY ==
[2024-11-13 15:01] VITALS: BMI 25.9
--- OUTSIDE RECORDS SUMMARY | 2024-11-27 01:29 | XMS_ITS | Clinical Summary ---
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
--- OUTSIDE RECORDS SUMMARY | 2024-11-27 01:29 | XMS_ITS | Referral Summary ---
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
[2024-11-27 06:12] VITALS: BP 105/71; PULSE 101; RESP 16; TEMP 36.2; O2SAT 100; BMI 25.4
[2024-11-27] MEDS: LACTATED RINGERS 1,000 ML 150 ML IV CONT (06:33)
--- NOTE | 2024-11-27 07:24 | P.PNAN_ITS ---
Anes - Initial Pre Proc Eval Procedure: Operation Date: 11/27/24 07:30 Proposed Procedures p Screening Colonoscopy - Tigre Siddiqi DO Date/Time: 11/27/24 07:24 Surgeon: Tigre Siddiqi DO Pre Op Diagnosis: Screening for malignant neoplasm of colon Patient Data Age: 59 Gender: F Height: 1.55 m Weight: 61.2 kg Last Vital Signs Temp 36.2 C L 11/27/24 06:12 Pulse 101 H 11/27/24 06:12 Resp 16 11/27/24 06:12 BP 105/71 11/27/24 06:12 Pulse Ox 100 11/27/24 06:12 O2 Del Method Room Air 11/27/24 06:12 Allergies Allergy/AdvReac Type Severity Reaction Status Date / Time No Known Allergies Allergy Verified 11/27/24 06:18 Home Medications ?Medication ?Instructions ?Recorded ?Confirmed ?Type calcium 600 mg capsule 1,200 mg PO DAILY 08/09/20 11/27/24 History scriwcfw-ziprzct-felf-iron 18 1 tablet PO DAILY 01/30/21 11/27/24 History mg-FA 400 mcg-vit K 25 mcg tablet (One-A-Day Women's Complete(with vit K)) cholecalciferol (vitamin D3) 25 25 mcg PO DAILY 07/09/22 11/27/24 History mcg (1,000 unit) capsule estradiol 10 mcg vaginal tablet 10 mcg vaginal 2XW 08/26/22 11/27/24 History famotidine 40 mg tablet 40 mg PO QHS #90 tabs 01/26/24 11/27/24 Rx montelukast 10 mg tablet See Rx Instructions .Route 09/05/24 11/27/24 Rx .COMPLEX #90 tabs ibuprofen 200 mg tablet (Advil) 400 mg PO ONCE PRN pain 09/08/24 11/22/24 History naproxen sodium 220 mg capsule 440 mg PO Q8-12H PRN pain 09/08/24 11/27/24 History (Aleve) levalbuterol tartrate 45 See Rx Instructions .Route 11/01/24 11/27/24 Rx mcg/actuation aerosol inhaler .COMPLEX #15 grams Patient hx anesthesia problems: none Family hx anesthesia problems: none Results Review: All pre-operative results and documents have been reviewed as part of the pre- operative evaluation. PMFSH Past Medical History Medical History Primary osteoarthritis, right shoulder Chronic depression not affecting current episode of care Right groin mass History of asthma Right inguinal hernia Menopausal and female climacteric states Osteopenia after menopause Spinal stenosis, lumbar region, without neurogenic claudication Surgical History Surgical History Status post total replacement of right shoulder (~10/03/24) Anatomic History of back surgery History of hysterectomy H/O removal of cyst Family History Family History Father Diabetes mellitus Mother Diabetes mellitus Sibling Diabetes mellitus Grandparent Family history of malignant neoplasm of breast Other Carcinoma of colon Cerebrovascular accident Family history of allergic disorder Family history of cardiovascular disease Family history of glaucoma Hypertension Social History Social History Smoking packs per day: 0.5 Smoking cigarettes per day: 10.0 Years smoked: 20 Smoking pack-years: 10.00 Smoking status: Former smoker Tobacco type: cigarettes Second hand tobacco smoke exposure: Yes Smoking end date: 09/20/01 Alcohol intake: never Substance use: never Substance use type: does not use Do You Feel Safe in your Home?: Yes Lack of Transportation: No Lack of Food: Never True Current Housing: I Have Housing Concerned About Future Housing: Decline to Answer Difficulty Paying Gas/Electric Bills: Decline to Answer Difficulty Paying for Meds: Decline to Answer Currently Unemployed: Decline to Answer Education: High School Diploma/GED Difficulty w/ Childcare or Family Care: Decline to Answer Living arrangements: with family Additional living arrangements comments: Occupation/Education: occupation Additional occupation/education comments: [employer] Gender identity (if verbalized by the patient): Female Spiritual care concerns: No Anes - Eval Final PreProcedure Day of Procedure 11/27/24 07:24 Patient weight: normal Heart: regular rate and rhythm Lungs: clear to auscultation Airway: Mallampati scale class II Neurological: alert and oriented Last oral intake: >/= 8 hours ASA classification: III Emergent: no Anesthetic plan: proceed Anesthesia type and monitoring: general GIVS and standard monitoring Results Review: All pre-operative results and documents have been reviewed as part of the pre- operative evaluation. Informed Consent: The patient's anesthetic plan and its attendant risks and benefits were discussed with the patient/family/POA. Questions were solicited and answers provided to the satisfaction of the patient/family/POA.
--- NOTE | 2024-11-27 07:33 | PM.IMHP ---
H&P: HPI History of Present Illness Date/Time: 11/27/24 07:33 Chief Complaint: Screening for colorectal cancer Narrative: this is a 59-year-old woman who presents for colonoscopy. Her last colonoscopy was 10 years ago and was normal. She denies a prior history of polyps. Her father did have colon cancer in his 80s. she denies any hematochezia or melena. Review of Systems Review of Systems: All systems reviewed & are unremarkable except as noted in HPI and below Constitutional: Constitutional: Denies chills, Denies fever(s), Denies headache(s) and Denies weight loss Eyes: Eyes: Denies change in vision ENT: Denies dizziness, Denies headache(s), Denies neck mass and Denies throat swelling Cardiovascular: Cardiovascular: Denies chest pain, Denies lightheadedness and Denies dyspnea Respiratory: Respiratory: Denies cough, Denies dyspnea and Denies wheezing Gastrointestinal: Gastrointestinal: Denies abdominal pain, Denies change in bowel habits, Denies nausea and Denies vomiting Genitourinary: Genitourinary: Denies hematuria and Denies dysuria Musculoskeletal: Musculoskeletal: Reports as per HPI Integumentary/Breasts: Skin/Breast: Reports as per HPI Neurologic: Denies dizziness and Denies headache(s) Allergic/Immunologic: Allergic/Immunologic: Denies throat swelling and Denies wheezing PMFSH Past Medical History Medical History Primary osteoarthritis, right shoulder Chronic depression not affecting current episode of care Right groin mass History of asthma Right inguinal hernia Menopausal and female climacteric states Osteopenia after menopause Spinal stenosis, lumbar region, without neurogenic claudication Surgical History Surgical History Status post total replacement of right shoulder (~10/03/24) Anatomic History of back surgery History of hysterectomy H/O removal of cyst Family History Family History Father Diabetes mellitus Mother Diabetes mellitus Sibling Diabetes mellitus Grandparent Family history of malignant neoplasm of breast Other Carcinoma of colon Cerebrovascular accident Family history of allergic disorder Family history of cardiovascular disease Family history of glaucoma Hypertension Social History Social History Smoking packs per day: 0.5 Smoking cigarettes per day: 10.0 Years smoked: 20 Smoking pack-years: 10.00 Smoking status: Former smoker Tobacco type: cigarettes Second hand tobacco smoke exposure: Yes Smoking end date: 09/20/01 Alcohol intake: never Substance use: never Substance use type: does not use Do You Feel Safe in your Home?: Yes Lack of Transportation: No Lack of Food: Never True Current Housing: I Have Housing Concerned About Future Housing: Decline to Answer Difficulty Paying Gas/Electric Bills: Decline to Answer Difficulty Paying for Meds: Decline to Answer Currently Unemployed: Decline to Answer Education: High School Diploma/GED Difficulty w/ Childcare or Family Care: Decline to Answer Living arrangements: with family Additional living arrangements comments: Occupation/Education: occupation Additional occupation/education comments: [employer] dept Gender identity (if verbalized by the patient): Female Spiritual care concerns: No Meds Home Medications and Allergies Home Medications ?Medication ?Instructions ?Recorded ?Confirmed ?Type calcium 600 mg capsule 1,200 mg PO DAILY 08/09/20 11/27/24 History vdlitwdc-npvgusz-eorb-iron 18 1 tablet PO DAILY 01/30/21 11/27/24 History mg-FA 400 mcg-vit K 25 mcg tablet (One-A-Day Women's Complete(with vit K)) cholecalciferol (vitamin D3) 25 25 mcg PO DAILY 07/09/22 11/27/24 History mcg (1,000 unit) capsule estradiol 10 mcg vaginal tablet 10 mcg vaginal 2XW 08/26/22 11/27/24 History famotidine 40 mg tablet 40 mg PO QHS #90 tabs 01/26/24 11/27/24 Rx montelukast 10 mg tablet See Rx Instructions .Route 09/05/24 11/27/24 Rx .COMPLEX #90 tabs ibuprofen 200 mg tablet (Advil) 400 mg PO ONCE PRN pain 09/08/24 11/22/24 History naproxen sodium 220 mg capsule 440 mg PO Q8-12H PRN pain 09/08/24 11/27/24 History (Aleve) levalbuterol tartrate 45 See Rx Instructions .Route 11/01/24 11/27/24 Rx mcg/actuation aerosol inhaler .COMPLEX #15 grams Allergies Allergy/AdvReac Type Severity Reaction Status Date / Time No Known Allergies Allergy Verified 11/27/24 06:18 Vital Signs Vital Signs - 24 hr 11/27/24 06:12 Temperature 97.1 F L Pulse Rate 101 H Respiratory Rate 16 Blood Pressure 105/71 Pulse Oximetry 100 Oxygen Delivery Room Air Exam Const: General: no acute distress and alert Orientation/consciousness: patient oriented x3 HENMT: Head: normocephalic and atraumatic Ears: hearing grossly normal bilaterally Face/Nose/Sinus: Normal nares present Mouth: Yes Normal oral and palatal mucosa present Eyes: Periorbital: periorbital findings normal Sclera: sclerae normal EOM: EOMs intact bilaterally Neck: Neck: normal visual inspection, no lymphadenopathy and trachea midline Chest: Chest palpation & inspection: normal inspection of the chest Resp: Effort & Inspection: normal respiratory effort Auscultation: clear to auscultation bilaterally Cardio: Jugular venous distension: no JVD Rate: regular rate Rhythm: regular rhythm Heart sounds: S1 normal heart sound present and S2 normal heart sound present Peripheral pulses: Peripheral pulses 2+ throughout GI: Inspection: normal to inspection GI Palp: Yes Soft to palpation, No Tenderness to palpation present (GI), No Guarding due to palpation present (GI) and No Rebound tenderness present Percussion: Yes normal to percussion Auscultation: normal bowel sounds : General: Yes no CVA tenderness Back/Spine/Pelvis: Back: no CVA tenderness Neuro: General: patient oriented x3, no focal motor deficits and CN's II-XI intact bilaterally Cognition (Neuro): normal cognition Speech: normal speech Motor exam (neuro): 5/5 motor strength present throughout Extrem: General: capillary refill normal and no clubbing, cyanosis or edema Assessment and Plan Assessment and plan (1) Screening for colorectal cancer: Code(s): Z12.11 - Encounter for screening for malignant neoplasm of colon; Z12.12 - Encounter for screening for malignant neoplasm of rectum Status: Acute Assessment and Plan: I have recommended colonoscopy. I have discussed the procedure, risks, benefits, and alternatives. Questions were answered. Patient is agreeable to proceed.
[2024-11-27 07:59] VITALS: BP 86/47; PULSE 61; RESP 21; O2SAT 100
[2024-11-27 08:09] VITALS: BP 93/54; PULSE 72; RESP 18; O2SAT 100
[2024-11-27 08:19] VITALS: BP 107/62; PULSE 57; RESP 19; O2SAT 100
== END 2024-11-27 08:26 | disposition home or self-care (01) ==
PROVIDERS: PCP Family Medicine; Visit Provider Surgery
PROC: 0DJD8ZZ Inspection of Lower Intestinal Tract, Via Natural or Artificial Opening Endoscopic (ICD-10-PCS; CPT 45378; principal; 2024-11-27 07:30)
DX: Z12.11 Encounter for screening for malignant neoplasm of colon (principal); K57.30 Diverticulosis of large intestine without perforation or abscess without bleeding; Z80.0 Family history of malignant neoplasm of digestive organs; Z87.891 Personal history of nicotine dependence
CPT/HCPCS: 45378; J2704; J7120

== ENCOUNTER 2025-01-04 08:11 | Outpatient (CLI) | payer OTHER, SELFPAY ==
--- NOTE | ~2025-01-04 | MM_ITS ---
EXAMINATION: MM screening anne-marie BI w odilia HISTORY: Screening TECHNIQUE: Craniocaudal and mediolateral oblique 3-D tomosynthesis images were obtained and synthetic 2-D images were generated. CAD analysis was submitted and interpreted. COMPARISON: Comparison to multiple prior studies sequentially, with oldest reviewed study dated 05/2019. BREAST PARENCHYMAL COMPOSITION: Not dense: There are scattered areas of fibroglandular density. FINDINGS: There is no evidence of suspicious mass, calcification, or architectural distortion to sugg est malignancy in either breast. There has been no suspicious interval change. IMPRESSION: 1. No mammographic evidence of malignancy. 2. Recommend routine screening mammography in one year. BI-RADS Category 1: Negative Reviewed, dictated and finalized at location []
--- OUTSIDE RECORDS SUMMARY | 2025-01-04 08:23 | XMS_ITS | Referral Summary ---
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
--- OUTSIDE RECORDS SUMMARY | 2025-01-04 08:23 | XMS_ITS | Clinical Summary ---
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
== END 2025-01-04 08:12 | disposition home or self-care (01) ==
PROVIDERS: PCP Family Medicine; Visit Provider Obstetrics & Gynecology
DX: Z12.31 Encounter for screening mammogram for malignant neoplasm of breast (principal)
CPT/HCPCS: 77063; 77067

== ENCOUNTER 2025-01-05 09:49 | Emergency (ER) | payer OTHER, SELFPAY ==
--- NOTE | ~2025-01-05 | XR_ITS ---
Exam: Abdomen 1V HISTORY: Lower abd pressure x 5 days-rule out constipation COMPARISON: None. TECHNIQUE: Supine images of the abdomen FINDINGS: Bowel gas pattern is nonspecific and non-obstructive. Fecal stasis within the cecum. There is no free air or deep sulci. A paucity of bowel gas is otherwise demonstrated. No pathologic calcifications are seen. Lung bases are unremarkable. Degenerative disease within the lumbosacral spine. IMPRESSION: Nonspecific, nonobstructive bowel gas pattern. Reviewed, dictated and finalized at location A.
--- NOTE | 2025-01-05 09:53 | ED.ABDPAIN ---
HPI - Abdominal Pain General Chief Complaint: Abdominal Pain Stated Complaint: Stomach/Back Pain Time Seen by Provider: 01/05/25 10:05 Source: patient Mode of arrival: ambulatory Limitations: no limitations History of Present Illness HPI narrative: Shania is a 59-year-old female patient presenting to the clinic today with complaints of abdominal pressure/cramping. She reports symptoms started on Wednesday of this week. Had a colonoscopy on December 01, 2024 and was told she had diverticulosis without diverticulitis. She denies any fevers, chills, body aches. No nausea, vomiting, or diarrhea. Denies any urinary symptoms. No blood in her stool. Took a laxative thought she may be constipated as well as some Gas-X without relief. Related Data Home Medications ?Medication ?Instructions ?Recorded ?Confirmed ?Last Taken ?Type calcium 600 mg capsule 1,200 mg PO DAILY 08/09/20 11/27/24 11/26/24 History mkfnpigv-pzrhuaj-fplb-iron 18 1 tablet PO DAILY 01/30/21 11/27/24 11/26/24 History mg-FA 400 mcg-vit K 25 mcg tablet (One-A-Day Women's Complete(with vit K)) cholecalciferol (vitamin D3) 25 25 mcg PO DAILY 07/09/22 11/27/24 11/26/24 History mcg (1,000 unit) capsule estradiol 10 mcg vaginal tablet 10 mcg vaginal 2XW 08/26/22 11/27/24 11/26/24 History ibuprofen 200 mg tablet (Advil) 400 mg PO ONCE PRN pain 09/08/24 11/22/24 Unknown History naproxen sodium 220 mg capsule 440 mg PO Q8-12H PRN pain 09/08/24 11/27/24 Unknown History (Aleve) Allergies Allergy/AdvReac Type Severity Reaction Status Date / Time No Known Allergies Allergy Verified 01/05/25 09:59 Review of Systems Review of Systems: Pertinent positives per HPI. Patient denies any fever, chills, rash, headache, visual changes, dizziness, cough, runny nose, sore throat, shortness of breath, chest pain, palpitations, nausea, vomiting, diarrhea, or any urinary issues. PMFSH Past Medical History Medical History Primary osteoarthritis, right shoulder Chronic depression not affecting current episode of care Right groin mass History of asthma Right inguinal hernia Menopausal and female climacteric states Osteopenia after menopause Spinal stenosis, lumbar region, without neurogenic claudication Surgical History Surgical History Status post total replacement of right shoulder (~10/03/24) Anatomic History of back surgery History of hysterectomy H/O removal of cyst Family History Family History Father Diabetes mellitus Mother Diabetes mellitus Sibling Diabetes mellitus Grandparent Family history of malignant neoplasm of breast Other Carcinoma of colon Cerebrovascular accident Family history of allergic disorder Family history of cardiovascular disease Family history of glaucoma Hypertension Social History Social History Smoking packs per day: 0.5 Smoking cigarettes per day: 10.0 Years smoked: 20 Smoking pack-years: 10.00 Smoking status: Former smoker Tobacco type: cigarettes Second hand tobacco smoke exposure: Yes Smoking end date: 09/20/01 Alcohol intake: never Substance use: never Substance use type: does not use Do You Feel Safe in your Home?: Yes Lack of Transportation: No Lack of Food: Never True Current Housing: I Have Housing Concerned About Future Housing: Decline to Answer Difficulty Paying Gas/Electric Bills: Decline to Answer Difficulty Paying for Meds: Decline to Answer Currently Unemployed: Decline to Answer Education: High School Diploma/GED Difficulty w/ Childcare or Family Care: Decline to Answer Living arrangements: with family Additional living arrangements comments: Occupation/Education: occupation Additional occupation/education comments: [employer] Gender identity (if verbalized by the patient): Female Spiritual care concerns: No Comments At the time of my signature, I reviewed and agree with the nursing past medical, surgical, social, and family history. There is no relevant family history pertinent to the patient complaint. Exam Narrative: General: Well-developed, well nourished, in no apparent distress. Head: Normocephalic, atraumatic. Cardio: Regular rate and rhythm, s1 and s2 normal, no murmur appreciated. Resp: Clear to auscultation bilaterally, no rhonchi, rales, wheezing or rubs. Abdomen: Soft, pliable, bowel sounds present in all quadrants, non-tender to palpation, no organomegly, no CVAT tenderness. Course Course Emergency Course: Portions of this record may have been created with voice recognition software. Level of Care: Express Care Visit Vital Signs Vital signs: Vital Signs Temperature 36.2 C L 01/05/25 09:59 Pulse Rate 64 01/05/25 09:59 Respiratory Rate 18 01/05/25 09:59 Blood Pressure 140/70 01/05/25 09:59 Pulse Oximetry 100 01/05/25 09:59 Oxygen Delivery Room Air 01/05/25 09:59 Temperature 36.2 C L 01/05/25 09:59 Pulse Rate 64 01/05/25 09:59 Respiratory Rate 18 01/05/25 09:59 Blood Pressure 140/70 01/05/25 09:59 Pulse Oximetry 100 01/05/25 09:59 Oxygen Delivery Room Air 01/05/25 09:59 Vital signs reviewed MDM - Abdominal Pain MDM Narrative Medical decision making narrative: At the time of visit patient is resting comfortably on the exam table. Patient appears to be nontoxic. Labs: Urinalysis positive for 1+ protein and trace of ketones. Diagnostics: KUB x-ray shows nonspecific normal bowel gas pattern Plan: I suspect patient has acute generalized abdominal discomfort. Urinalysis was negative for any sign of infection and KUB x-ray was normal. Patient does not have any fevers time and was nontender upon palpation on exam. Offer to send patient to the ER for further evaluation if she would like to have blood and further imaging completed and she declined at this time. States that she would go to the emergency room if her symptoms worsen. Supportive measures were discussed with the patient and they voiced understanding discharge instructions and agrees to treatment plan. Return precautions reviewed Differential Diagnosis Differential diagnosis: Likely abdominal pain, acute appendicitis, constipation, diverticulitis, gastroenteritis, pancreatitis and small bowel obstruction Lab Data Labs: Lab Results 01/05/25 Range/Units 10:31 POC Urine Color Yellow POC Urine Clarity Clear POC Urine pH 7.5 POC Ur Specif [place] 1.020 POC Urine Protein 1+ (Negative) POC Ur Glucose (UA) Negative (Negative) POC Urine Ketones Trace (Negative) POC Urine Blood Negative (Negative) POC Urine Nitrite Negative (Negative) POC Urine Bilirubin Negative (Negative) POC Urine Urobilinogen 0.2 POC U Leukocyte Esteras Negative (Negative) Imaging Data Radiologist's impression: ITS Impressions Abdomen X-Ray 01/05/25 10:30 IMPRESSION: Nonspecific, nonobstructive bowel gas pattern. Discharge Plan Discharge Clinical Impression: Acute generalized abdominal pain Patient Disposition: Home Condition: Stable Instructions: Antibiotic Form, Abdominal Pain (ED) Additional Instructions: Urinalysis shows no sign of infection KUB x-ray shows a nonspecific bowel gas pattern. No sign of obstruction or constipation Increase fluids and stay well hydrated Tylenol/motrin for pain/fever May take simethicone for bloating as needed Clear liquids x 24 hours then advance as tolerated for nausea/vomiting Go to the ED if you develop a worsening in your condition- high fever not controlled by Tylenol or Motrin, dehydration, weakness, lethargy, shortness of breath, chest pain, or worsening of abdominal pain. Follow up with your PCP in 3-5 days if symptoms persist. Patient Language: Belarusian Prescriptions: No Action calcium 600 mg Capsule 1,200 mg PO DAILY One-A-Day Women's Complete(vK) 18 mg-400 mcg- 25 mcg tablet 1 tablet PO DAILY cholecalciferol (vitamin D3) 25 mcg (1,000 unit) capsule 25 mcg PO DAILY estradiol 10 mcg tablet 10 mcg vaginal 2XW naproxen sodium [Aleve] 220 mg capsule 440 mg PO Q8-12H PRN (Reason: pain) ibuprofen [Advil] 200 mg tablet 400 mg PO ONCE PRN (Reason: pain) famotidine 40 mg tablet 40 mg PO QHS Qty: 90 1RF montelukast 10 mg tablet See Rx Instructions .ROUTE .COMPLEX Qty: 90 1RF Dose Instruction: TAKE 1 TABLET BY MOUTH DAILY Rx Instructions: TAKE 1 TABLET BY MOUTH DAILY levalbuterol tartrate 45 mcg/actuation HFA aerosol inhaler See Rx Instructions .ROUTE .COMPLEX Qty: 15 0RF Dose Instruction: USE 2 INHALATIONS ORALLY EVERY 6 HOURS Rx Instructions: USE 2 INHALATIONS ORALLY EVERY 6 HOURS Follow-up/Referrals: PHYSICIAN,SHINGLE CATCHER [Primary Care Provider] - Time of Disposition: 10:44 Quality NIHSS Nursing Documentation ED NIHSS nursing documentation: reviewed/agree
[2025-01-05 09:59] VITALS: BP 140/70; PULSE 64; RESP 18; TEMP 36.2; O2SAT 100
[2025-01-05 10:34] LABS: EDUAAPPEAR Clear; EDUABILI Negative (Negative); EDUABLOOD Negative (Negative); EDUACOLOR1 Yellow; EDUAGLUCOSE Negative (Negative); EDUAKETONE Trace (Negative); EDUALEUKO Negative (Negative); EDUANITRATE Negative (Negative); EDUAPH 7.5; EDUAPROTEIN 1+ (Negative); EDUAUROBILI 0.2
== END 2025-01-05 10:52 | disposition home or self-care (01) ==
PROVIDERS: Emergency Provider Nurse Practitioner Family
DX: R10.84 Generalized abdominal pain (principal); J45.909 Unspecified asthma, uncomplicated; M19.011 Primary osteoarthritis, right shoulder; M85.80 Other specified disorders of bone density and structure, unspecified site; M48.061 Spinal stenosis, lumbar region without neurogenic claudication; Z87.891 Personal history of nicotine dependence
CPT/HCPCS: 74018; 81003; 99213; G0463